=== PATIENT | female | born 1990 | race Caucasian/White ===

== ENCOUNTER 2020-02-13 08:08 | Outpatient (CLI) | payer OTHER ==
--- NOTE | 2020-02-13 08:46 | ULT ---
ULTRASOUND ABDOMEN COMPLETE: DATE: 02/13/2020 HISTORY: Generalized abdominal pain in 29-year-old female FINDINGS: Gallbladder: Normal wall thickness. Numerous tiny mobile gallstones a few millimeters each. No perich olecystic fluid. Liver: Normal parenchymal echogenicity. Bilateral kidneys: No hydronephrosis. Pancreas: Nonspecific sonographic appearance. Common duct caliber: 2 mm. Abdominal aorta: No aneurysm Inferior vena cava: Unremarkable where visualized. Spleen: No splenomegaly IMPRESSION: Cholelithiasis without evidence of acute cholecystitis
--- NOTE | 2020-02-13 09:29 | ULT ---
Exam: Pelvic ultrasound HISTORY: Right lower quadrant abdominal pain. COMPARISON: None TECHNIQUE: Multiple grayscale and color Doppler images were obtained in a transabdominal and transvag inal pelvic ultrasound. Spectral analysis of the Doppler waveforms of the ovaries were performed. FINDINGS: CERVIX: Grossly within normal limits where visualized. UTERUS: Anteverted but normal in appearance. ENDOMETRIAL STRIPE: 16 mm which is mildly thickened, but this may be related to the stage of the becca ent's menstrual cycle. No fluid or fluid collection is seen in the endometrial canal. No free fluid is present. RIGHT OVARY: A 2 cm anechoic structure seen in the right ovary likely related to a small cyst. Flow i s present in the right ovary. LEFT OVARY:Not visualized. IMPRESSION: 1. Small right ovarian cyst. 2. Nonvisualization left ovary. 3. Thickened endometrial stripe, but this may be related to the stage of the patient's menstrual cycl e. No fluid or fluid collection is seen in the endometrial canal.
== END 2020-02-13 08:09 | disposition home or self-care (01) ==
LOC: SCSULT 08:08
PROVIDERS: ATTEND Family Medicine
DX: R10.9 Unspecified abdominal pain (principal); N83.201 Unspecified ovarian cyst, right side; R93.89 Abnormal findings on diagnostic imaging of other specified body structures
CPT/HCPCS: 76856; 93975